=== PATIENT | female | born 1940 | race Caucasian/White ===

== ENCOUNTER 2020-11-10 09:53 | Emergency (ER) | payer MEDICARE, SELFPAY ==
[2020-11-10] VITALS (15 sets, daily range): BP systolic 64–129; BP diastolic 48–78; PULSE 52–95; RESP 9–18; TEMP 36.2–36.6; O2SAT 94–98
--- NOTE | ~2020-11-10 | XR_ITS ---
XR wrist RT min 3V DATE: 11/10/2020 10:36 INDICATION: Medial right wrist pain following fall TECHNIQUE: 4 views COMPARISON: None FINDINGS: There is a subtle nondisplaced linear intra-articular fracture of the distal lateral radius . The distal ulna is intact. Radiocarpal alignment is preserved. 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 IMPRESSION: Nondisplaced linear intra-articular fracture of the distal radius Reviewed, dictated and finalized at location A.
--- NOTE | ~2020-11-10 | XR_ITS ---
XR hip RT min 3V w AP pelvis DATE: 11/10/2020 10:35 INDICATION: Fall. Right hip pain. TECHNIQUE: AP pelvis. AP, lateral and crosstable lateral views of left hip COMPARISON: None FINDINGS: No pelvic fracture or bone destruction. The pubic symphysis and sacroiliac joints are adry lly aligned. No fracture or dislocation, avascular necrosis or bone destruction of the right hip. Hip joint spaces appear symmetric and relatively preserved. IMPRESSION: No pelvic or right hip fracture Reviewed, dictated and finalized at location A.
--- NOTE | 2020-11-10 10:25 | ED.FALL ---
HPI - Fall General Chief Complaint: Fall <Maryellen Chandra PA-C - Last Filed: 11/10/20 15:09> Stated Complaint: FALL/ R HIP R WRIST PAIN <EBONI Astorga Last Filed: 11/10/20 15:09> Time Seen by Provider: 11/10/20 10:11 <EBONI Astorga Last Filed: 11/10/20 15:09> Source: patient <EBONI Astorga Last Filed: 11/10/20 15:09> Mode of arrival: EMS <EBONI Astorga Last Filed: 11/10/20 15:09> Limitations: no limitations <EBONI Astorga Last Filed: 11/10/20 15:09> History of Present Illness HPI Narrative: This is a 80-year-old female that presents to the emergency department after a fall today via EMS. Reports she was walking into a room and could not find the light switch. Reports she did not realize there was a step and missed the step. This caused her to fall onto her right side. Since she has had right wrist and hip pain. The pain in her hip makes her unable to ambulate. Reports decreased range of motion in the right hip due to pain. Denies hitting her head, loss of consciousness, vision changes, vomiting, numbness, or weakness. <Maryellen Chandra PA-C - Last Filed: 11/10/20 15:09> Related Data Home Medications: Home Medications Medication Instructions Recorded Confirmed estradiol 1 g VAGINAL 3XW 11/10/20 <EBONI Astorga Last Filed: 11/10/20 15:09> Allergies/Adverse Reactions: Allergies Allergy/AdvReac Type Severity Reaction Status Date / Time cat dander Allergy Hives Verified 11/10/20 09:59 nitrofurantoin Allergy Fever Verified 11/10/20 09:59 [From Macrobid] Sulfa (Sulfonamide Allergy Unknown Verified 11/10/20 09:59 Antibiotics) <EBONI Astorga Last Filed: 11/10/20 15:09> Review of Systems Review of Systems: CONSTITUTIONAL: Denies fever EYES: Denies visual changes GASTROINTESTINAL: Denies vomiting MUSCULOSKELETAL: Reports joint pain and myalgia. Denies back pain NEUROLOGIC: Denies headache, numbness, or weakness. <Maryellen Chandra PA-C - Last Filed: 11/10/20 15:09> All systems reviewed & are unremarkable except as noted in HPI and below <Maryellen Chandra PA-C - Last Filed: 11/10/20 15:09> [facility] Past Medical History Medical History: Medical History (Updated 11/10/20 @ 11:59 by Maryellen Chandra PA-C) History of osteopenia <Maryellen Chandra PA-C - Last Filed: 11/10/20 15:09> Social History Social History: Social History (Updated 11/10/20 @ 10:27 by Maryellen Chandra PA-C) Smoking status: Never smoker Gender identity (if verbalized by the patient): Female <Maryellen Chandra PA-C - Last Filed: 11/10/20 15:09> Exam Narrative: GENERAL: Well-appearing, well-nourished, and in no acute distress. HEAD: Normocephalic, atraumatic. EYES: PERRLA and EOMI. ENT: Nares clear, no rhinorrhea or epistaxis. Mucous membranes moist. Oropharynx without tonsillar hypertrophy exudate or other lesions. Bilateral TMs pearly bran non-bulging NECK: Supple. No adenopathy or masses. No midline cervical spine tenderness CHEST: Clear to auscultation. No respiratory distress. No wheezes rales or rhonchi HEART: Regular rate and rhythm. No murmur heard. Normal peripheral pulses. BACK: No midline thoracic or lumbar spine tenderness EXTREMITIES: Normal range of motion, except decreased range of motion in the right hip due to pain. No edema or obvious deformity. Normal peripheral pulses. Normal sensation SKIN: Warm, dry, no rash. NEURO: No focal deficits. Alert and oriented x3. Cranial nerves II through XII grossly intact PSYCH: Normal mood and affect <Maryellen Chandra PA-C - Last Filed: 11/10/20 15:09> Course Vital Signs Vital signs: Vital Signs Temperature 98 F 11/10/20 09:54 Pulse Rate 81 11/10/20 09:54 Respiratory Rate 18 11/10/20 09:54 Blood Pressure 129/67 11/10/20 09:54 Pulse Oximetry 96 11/10/20 09:54 Temperature 97.3 F L 11/10/20 14:31 Pulse R
[2020-11-10] MEDS: ONDANSETRON INJ 4 MG/2 ML VIAL IV PUSH (10:40)
[2020-11-10] MEDS: MORPHINE SULFATE (*CRX) 2 MG/ML INJ IV PUSH (10:43)
--- NOTE | 2020-11-10 11:49 | PC.NURSE ---
Patient was slow to ambulate and did have assistance x1 to maintain balance. Her family member in room was able to help. Patient tells me that she feels that she is able to go home and ambulate as needed to care for herself and use bathroom. Family member will be present with patient at home to assist as needed. ED PA notified.
[2020-11-10 12:01] LABS: Glucose Point of Care 92 mg/dl (65-105)
--- NOTE | 2020-11-10 12:01 | PC.NURSE ---
Patient sitting on the edge of the stretcher, she states she feels very lightheaded . She is noted to be very diaphoretic. Blood pressure noted to be 64/48 while sitting and glucose was checked as noted in labs. Patient was assisted back to lay in bed with repeat blood pressure noted at 83/59. ED PA notified of patient condition.
[2020-11-10] MEDS: SODIUM CHLORIDE 0.9% IV 1,000 ML 999 ML IV CONT (12:10)
--- NOTE | 2020-11-10 13:15 | PC.NURSE ---
EDPA notified of the patient's vitals after fluids. Patient became tachypnic and diaphoretic when moving from lying to sitting position and needed to be held up when doing the standing vitals.
[2020-11-10] MEDS: HYDROcodone/acetaminophen (*CRX) 5-325 MG TABLET 1 TAB PO (13:24)
[2020-11-10] MEDS: SODIUM CHLORIDE 0.9% IV 500 ML 999 ML IV CONT (13:24)
== END 2020-11-10 15:16 | disposition home or self-care (01) ==
PROVIDERS: Emergency Provider General Practice
DX: S52.571A Other intraarticular fracture of lower end of right radius, initial encounter for closed fracture (principal); M25.551 Pain in right hip; W10.9XXA Fall (on) (from) unspecified stairs and steps, initial encounter
CPT/HCPCS: 29125; 73110; 73502; 82948; 96361; 96374; 96375; 99284; A4565; A9270; J2270; J2405; J7030; J7040

== ENCOUNTER 2022-05-13 08:55 | Emergency (ER) | payer MEDICARE, SELFPAY ==
[2022-05-13] VITALS (12 sets, daily range): BP systolic 92–106; BP diastolic 66–86; PULSE 73–151; RESP 11–20; TEMP 36.4; O2SAT 95–99
--- NOTE | ~2022-05-13 | XR_ITS ---
EXAMINATION: XR chest 2V 05/13/2022 09:47 INDICATION: Chest palpitations PROCEDURE: 2 view chest COMPARISON: No prior studies for comparison. FINDINGS: The lungs are clear. The cardiomediastinal silhouette is within normal limits. There are no pleural effusions. There is no pneumothorax suspected. IMPRESSION: 1: NO ACUTE CARDIOPULMONARY DISEASE. Reviewed, dictated and finalized at location L. ER FINISHER
--- NOTE | 2022-05-13 09:06 | ECG_ITS ---
Measurements Intervals [place] Rate: 78 P: 64 [place]: 130 QRS: 2 QRSD: 93 T: 50 QT: 381 QTc: 435 Interpretive Statements SINUS RHYTHM INDETERMINATE AXIS LOW QRS VOLTAGE IN PRECORDIAL LEADS [QRS DEFLECTION < 1.0 mV IN CHEST LEADS] INCOMPLETE RIGHT BUNDLE BRANCH BLOCK [90+ ms QRS DURATION, TERMINAL R IN V1/V2, 40+ ms S IN I/aVL/V4/V5/V6] POSSIBLE iNFERIOR MYOCARDIAL INFARCTION , PROBABLY OLD [40+ ms Q WAVE AND/OR ST/T ABNORMALITY IN II/aVF] ABNORMAL ECG Electronically Signed On 05-13-2022 14:14:34 PLASTIC SHEETS FINISHING SUPERVISOR by Caleb Mcbride M.D.
[2022-05-13 09:32] LABS: Basophils Absolute Auto 0.1 K/mm3 (0.0-0.1); Basophils Percent Auto 0.9 % (0.2-1.2); Eosinophils Absolute Auto 0.1 K/mm3 (0-0.3); Eosinophils Percent Auto 1.7 % (0-4.4); Hematocrit 42.2 % (37.0-47.0); Hemoglobin 13.4 g/dL (12.0-15.0); Immature Granulocyte Absolute 0.01 K/mm3 (0.00-0.031); Immature Granulocyte Percent A 0.2 % (0-0.5); Lymphocytes Absolute Auto 1.18 K/mm3 (0.9-3.2); Lymphocytes Percent Auto 20.5 % (18.3-44.2); Mean Corpuscular HGB Conc 31.8 g/dl (32-36); Mean Corpuscular Hemoglobin 31.2 pg (26-34); Mean Corpuscular Volume 98.4 fl (80-100); Mean Platelet Volume 10.6 fl (7.4-10.4); Monocytes Absolute Auto 0.4 K/mm3 (0.1-0.6); Monocytes Percent Auto 7.3 % (2.6-8.5); Neutrophils Percent Auto 69.4 % (45.5-73.1); Platelet Count Result 235 k/mm3 (150-375); Red Blood Count 4.29 M/mm3 (4.2-5.4); Red Cell Distribution Width 12.5 % (11.5-14.5); White Blood Count 5.8 K/mm3 (4.5-10.0)
--- NOTE | 2022-05-13 09:33 | ED.ARRPALP ---
HPI - Arrhythmia/Palpitations General Chief Complaint: Arrhythmia/Palpitations Stated Complaint: elevated heart rate, A-fib Time Seen by Provider: 05/13/22 09:14 History of Present Illness HPI narrative: Patient is a 81-year-old female who presents ER with palpitations. Patient reports she woke up and then became dizzy and has been off balance. No tightness in her chest but has racing the heart. She checked her Apple Watch and her heart rate was in the 140s. She reports that she has history of mitral valve prolapse in her ground mixer Dr. Brewer recently told her that that is associated with atrial fibrillation. Patient has no previous history of A-fib. She is not anticoagulated. No loss of consciousness. No difficulty breathing. Related Data Home Medications Medication Instructions Recorded Confirmed estradiol 0.01% (0.1 mg/gram) 1 g vaginal 3XW 11/10/20 01/30/21 vaginal cream ascorbic acid (vitamin C) 1,000 mg 1 g PO DAILY 11/14/20 01/30/21 tablet cholecalciferol (vitamin D3) 50 50 mcg PO DAILY 11/14/20 01/30/21 mcg (2,000 unit) capsule cranberry extract 200 mg capsule 200 mg PO DAILY 11/14/20 01/30/21 (Ellura) estradiol 0.01% (0.1 mg/gram) 1 g vaginal 3XW 11/14/20 01/30/21 vaginal cream melatonin 5 mg tablet 5 mg PO QHS 11/14/20 01/30/21 jnlgsogi-prg-C. coag-B. tablet PO .PRN 11/14/20 01/30/21 subtilis-inulin 1 billion cell-1 gram chew tab (Culturelle Probiotic-Multivit) multivitamin 1 tablet PO DAILY 11/14/20 01/30/21 naphazoline 0.025 %-pheniramine 1 drp EACH EYE QID PRN 11/14/20 01/30/21 0.3 % eye drops (Naphcon-A) Allergies Allergy/AdvReac Type Severity Reaction Status Date / Time cat dander Allergy Hives Verified 05/13/22 09:06 nitrofurantoin Allergy Fever Verified 05/13/22 09:06 [From Macrobid] Sulfa (Sulfonamide Allergy Unknown Verified 05/13/22 09:06 Antibiotics) Review of Systems Review of Systems: All systems reviewed & are unremarkable except as noted in HPI and below Constitutional: Constitutional: Denies chills, Denies fatigue and Denies fever(s) Cardiovascular: Cardiovascular: Denies chest pain, Reports rapid heart rate and Denies radiating jaw, neck or arm pain Respiratory: Respiratory: Denies cough, Denies dyspnea and Denies wheezing Neurologic: Reports dizziness, Denies headache(s), Denies focal weakness and Denies numbness PMFSH Past Medical History Medical History Broken arm 05/11/2013, 11/10/2020 Contusion of right hip and thigh Contusion of right hip, initial encounter History of osteopenia History of polymyalgia rheumatica [id number] Surgical History Surgical History History of breast surgery 1965 in [place], [place] to remove benign tumor History of colonoscopy 1994 and 1997 in [facility], 2002 in [facility], 2007 in [facility], 2018 in [facility] History of colonoscopy with polypectomy 1992 in [facility] and 2012 in [facility] in [facility] History of eye surgery 1960 at [facility] to correct amblyopia History of hysterectomy 1992 in [facility] Social History Social History Alcohol intake: current Drinks per week: 3 Occupation/Education: retired Gender identity (if verbalized by the patient): Female Exam Narrative: GENERAL: Well-appearing, well-nourished, and in no acute distress. HEAD: Normocephalic, atraumatic. EYES: PERRL and EOMI. ENT: Mucous membranes moist. CHEST: Clear to auscultation. No respiratory distress. HEART: Irregularly irregular rate and rhythm that is tachycardic. Normal peripheral pulses. EXTREMITIES: Normal range of motion. No edema. SKIN: Warm, dry, no rash. NEURO: Alert and oriented x3. PSYCH: Normal mood and affect. C
[2022-05-13 09:41] LABS: Alanine Aminotransferase 25 U/L (6-35); Albumin Level 4.4 g/dL (3.5-5.1); Alkaline Phosphatase 63 U/L (38-126); Anion Gap 5 mmol/L (8-16); Aspartate Amino Transferase 27 U/L (14-36); Bilirubin,Total 0.9 mg/dL (0.2-1.3); Blood Urea Nitrogen 24 mg/dL (7-17); Carbon Dioxide 32 mmol/L (22-30); Chloride 105 mmol/L (98-107); Estimated CRCL calculation 46 ml/min; Estimated Glomerular Filt Rate > 60; Glucose 107 mg/dL (65-110); INR 1.1; Lipase 167 U/L (23-300); Potassium 3.7 mmol/L (3.4-5.0); Prothrombin Time 13.4 Seconds (11.1-14.7); Sodium 142 mmol/L (137-145)
--- NOTE | 2022-05-13 09:49 | PC.NURSE ---
upon returning from xray sr with pacs noted
[2022-05-13 09:50] LABS: Influenza A QL RT-PCR Negative (Negative); Influenza B QL RT-PCR Negative (Negative); SARS-CoV-2 RNA PCR Negative
[2022-05-13 09:53] LABS: Troponin I 0.014 ng/mL (0.000-0.034)
--- NOTE | 2022-05-13 09:58 | ECG_ITS ---
Measurements Intervals [place] Rate: 141 P: [place]: 0 QRS: -16 QRSD: 93 T: 33 QT: 302 QTc: 463 Interpretive Statements ATRIAL FIBRILLATION WITH RAPID VENTRICULAR RESPONSE INDETERMINATE AXIS INCOMPLETE RIGHT BUNDLE BRANCH BLOCK [90+ ms QRS DURATION, TERMINAL R IN V1/V2, 40+ ms S IN I/aVL/V4/V5/V6] MINIMAL ST DEPRESSION [0.025+ mV ST DEPRESSION] LOW VOLTAGE ABNORMAL ECG NO PREVIOUS ECG AVAILABLE FOR COMPARISON Electronically Signed On 05-13-2022 14:13:20 AGRICULTURE ENGINEER by Caleb Mcbride M.D.
[2022-05-13] MEDS: APIXABAN 5 MG TABLET PO (11:53)
== END 2022-05-13 12:00 | disposition home or self-care (01) ==
PROVIDERS: Emergency Provider Emergency Medicine; Referring Provider Internal Medicine Cardiovascular Disease
DX: I48.91 Unspecified atrial fibrillation (principal); M85.80 Other specified disorders of bone density and structure, unspecified site; Z90.710 Acquired absence of both cervix and uterus; Z20.822 Contact with and (suspected) exposure to COVID-19; I45.10 Unspecified right bundle-branch block; R94.31 Abnormal electrocardiogram [ECG] [EKG]
CPT/HCPCS: 36415; 71046; 80053; 83690; 84484; 85025; 85610; 85730; 87636; 93005; 99284; A9270

== ENCOUNTER 2022-06-08 08:43 | Emergency (ER) | payer MEDICARE, SELFPAY ==
[2022-06-08] VITALS (31 sets, daily range): BP systolic 90–119; BP diastolic 68–86; PULSE 62–156; RESP 10–22; TEMP 36.6; O2SAT 92–100
--- NOTE | ~2022-06-08 | XR_ITS ---
EXAMINATION: XR chest 2V 06/08/2022 09:46 INDICATION: Chest palpitations PROCEDURE: 2 view chest COMPARISON: 05/13/2022 FINDINGS: The lungs are clear. The cardiomediastinal silhouette is within normal limits. There are no pleural effusions. There is no pneumothorax suspected. IMPRESSION: 1: NO ACUTE CARDIOPULMONARY DISEASE. Reviewed, dictated and finalized at location A.
--- NOTE | 2022-06-08 08:53 | ECG_ITS ---
Measurements Intervals [place] Rate: 153 P: [place]: 0 QRS: -1 QRSD: 96 T: 61 QT: 293 QTc: 468 Interpretive Statements ATRIAL FIBRILLATION WITH RAPID VENTRICULAR RESPONSE LOW QRS VOLTAGE IN PRECORDIAL LEADS INCOMPLETE RIGHT BUNDLE BRANCH BLOCK BORDERLINE ST ABNORMALITY- ANTEROLATERAL LEADS ABNORMAL ECG COMPARED TO ECG 05/13/2022 10:02:02 ATRIAL FIBRILLATION NOW PRESENT ST DEVIATION NOW PRESENT Electronically Signed On 06-08-2022 17:11:34 CDT by Aston Barton D.O.
[2022-06-08] MEDS: dilTIAZem HCl INJ 25 MG/5 ML VIAL 15 MG IV PUSH (09:04)
[2022-06-08] MEDS: dilTIAZem 100 MG/100 ML 100 MG/100 ML BAG IV CONT (09:05)
--- NOTE | 2022-06-08 09:20 | ED.ARRPALP ---
HPI - Arrhythmia/Palpitations General Chief Complaint: Arrhythmia/Palpitations Stated Complaint: in afib Time Seen by Provider: 06/08/22 09:10 History of Present Illness HPI narrative: 81-year-old female with a history of atrial fibrillation, MVP and mitral regurgitation reports for palpitations with associated lightheadedness that she woke up this morning. Patient states she woke up feeling her heart racing and knew she was in A-fib with RVR, then came to the ED. Pt sees Dr. Brewer (cardiology). Last apt was 05/29/22. She takes eliquis 5mg daily, however did not take it for 5 days between 06/01-06/06 because she was getting a colonoscopy. She took her dose yesterday, but has not taken her dose yet this morning. She is not on rate control medications due to history of low blood pressure. Denies headache, vision changes, focal numbness or weakness, CP, SOB, n/v/d. Denies history of CHF, [place]. Related Data Home Medications Medication Instructions Recorded Confirmed estradiol 0.01% (0.1 mg/gram) 1 g vaginal 3XW 11/10/20 01/30/21 vaginal cream ascorbic acid (vitamin C) 1,000 mg 1 g PO DAILY 11/14/20 01/30/21 tablet cholecalciferol (vitamin D3) 50 50 mcg PO DAILY 11/14/20 01/30/21 mcg (2,000 unit) capsule cranberry extract 200 mg capsule 200 mg PO DAILY 11/14/20 01/30/21 (Ellura) estradiol 0.01% (0.1 mg/gram) 1 g vaginal 3XW 11/14/20 01/30/21 vaginal cream melatonin 5 mg tablet 5 mg PO QHS 11/14/20 01/30/21 [id number]-hxk-V. coag-B. tablet PO .PRN 11/14/20 01/30/21 subtilis-inulin 1 billion cell-1 gram chew tab (Culturelle Probiotic-Multivit) multivitamin 1 tablet PO DAILY 11/14/20 01/30/21 naphazoline 0.025 %-pheniramine 1 drp EACH EYE QID PRN 11/14/20 01/30/21 0.3 % eye drops (Naphcon-A) Allergies Allergy/AdvReac Type Severity Reaction Status Date / Time cat dander Allergy Hives Verified 05/13/22 09:06 nitrofurantoin Allergy Fever Verified 05/13/22 09:06 [From Macrobid] Sulfa (Sulfonamide Allergy Unknown Verified 05/13/22 09:06 Antibiotics) Review of Systems Review of Systems: CONSTITUTIONAL: Denies fever, chills EYES: Denies visual changes, redness, or discharge. ENT: Denies rhinorrhea, congestion, sore throat, or otalgia. CARDIOVASCULAR: Denies chest pain, or edema. RESPIRATORY: Denies cough or dyspnea. GASTROINTESTINAL: Denies abdominal pain, nausea, vomiting, or diarrhea. GENITOURINARY: Denies dysuria or hematuria. SKIN: Denies rash or itching. MUSCULOSKELETAL: Denies back pain, joint pain, or myalgia. NEUROLOGIC: Denies headache, numbness, dizziness, or weakness. PSYCHIATRIC: Denies anxiety or depression. PMFSH Past Medical History Medical History Broken arm 05/11/2013, 11/10/2020 Contusion of right hip and thigh Contusion of right hip, initial encounter History of osteopenia History of polymyalgia rheumatica [id number] Surgical History Surgical History History of breast surgery 1965 in [place], [place] to remove benign tumor History of colonoscopy 1994 and 1997 in [facility], 2002 in [facility], 2007 in [facility], 2018 in [facility] History of colonoscopy with polypectomy 1992 in [facility] and 2012 in [facility] History of eye surgery 1959 at [facility] to correct amblyopia History of hysterectomy 1992 in [facility] Social History Social History Alcohol intake: current Drinks per week: 3 Occupation/Education: retired Gender identity (if verbalized by the patient): Female Exam Narrative: GENERAL: Well-appearing, well-nourished, and in no acute distress. Patient resting comfortably in the bed. She is pleasant and conversational. Speaking in full sentences. HEAD: Normocep
[2022-06-08 09:33] LABS: Basophils Absolute Auto 0.1 K/mm3 (0.0-0.1); Basophils Percent Auto 1.3 % (0.2-1.2); Eosinophils Absolute Auto 0.1 K/mm3 (0-0.3); Eosinophils Percent Auto 2.1 % (0-4.4); Hematocrit 43.4 % (37.0-47.0); Immature Granulocyte Absolute 0.01 K/mm3 (0.00-0.031); Immature Granulocyte Percent A 0.2 % (0-0.5); Lymphocytes Absolute Auto 1.69 K/mm3 (0.9-3.2); Lymphocytes Percent Auto 32.3 % (18.3-44.2); Mean Corpuscular HGB Conc 32.3 g/dl (32-36); Mean Corpuscular Hemoglobin 31.1 pg (26-34); Mean Corpuscular Volume 96.4 fl (80-100); Mean Platelet Volume 11.3 fl (7.4-10.4); Monocytes Absolute Auto 0.4 K/mm3 (0.1-0.6); Monocytes Percent Auto 8.2 % (2.6-8.5); Neutrophils Absolute Auto 2.9 K/mm3 (1.3-6.7); Neutrophils Percent Auto 55.9 % (45.5-73.1); Platelet Count Result 237 k/mm3 (150-375); Red Cell Distribution Width 12.5 % (11.5-14.5); White Blood Count 5.2 K/mm3 (4.5-10.0)
--- NOTE | 2022-06-08 09:49 | PC.NURSE ---
Patient off unit to radiology.
[2022-06-08] MEDS: ENOXAPARIN 60 MG/0.6 ML SYRINGE SUB-Q (10:16)
--- NOTE | 2022-06-08 10:28 | ECG_ITS ---
Measurements Intervals [place] Rate: 64 P: 64 CT: 142 QRS: 45 QRSD: 101 T: 61 QT: 410 QTc: 426 Interpretive Statements SINUS RHYTHM LOW QRS VOLTAGE IN PRECORDIAL LEADS INCOMPLETE RIGHT BUNDLE BRANCH BLOCK BORDERLINE R WAVE PROGRESSION, ANTERIOR LEADS BORDERLINE ECG COMPARED TO ECG 06/08/2022 08:53:08 SINUS RHYTHM NOW PRESENT Electronically Signed On 06-08-2022 17:15:45 CDT by Aston Barton D.O.
[2022-06-08 10:31] LABS: INR 1.3; Partial Thromboplastin Time 31.7 SECONDS (22.3-36.8); Prothrombin Time 15.2 Seconds (11.1-14.7)
[2022-06-08 10:35] LABS: Alanine Aminotransferase 30 U/L (6-35); Albumin Level 3.9 g/dL (3.5-5.1); Alkaline Phosphatase 55 U/L (38-126); Anion Gap 3 mmol/L (8-16); Aspartate Amino Transferase 30 U/L (14-36); Bilirubin,Total 1.1 mg/dL (0.2-1.3); Blood Urea Nitrogen 21 mg/dL (7-17); Calcium 8.5 mg/dL (8.4-10.2); Carbon Dioxide 30 mmol/L (22-30); Chloride 108 mmol/L (98-107); Estimated CRCL calculation 53 ml/min; Estimated Glomerular Filt Rate > 60; Glucose 92 mg/dL (65-110); Lipase 151 U/L (23-300); Potassium 4.4 mmol/L (3.4-5.0); Sodium 141 mmol/L (137-145)
[2022-06-08 10:46] LABS: Troponin I < 0.012 ng/mL (0.000-0.034)
--- NOTE | 2022-06-08 11:15 | PC.NURSE ---
Patient report given to JAYE Hawkins. All questions answered and care of patient transferred.
[2022-06-08] MEDS: METOPROLOL TARTRATE 25 MG TABLET 12.5 MG PO (11:53)
--- NOTE | 2022-06-08 12:00 | PC.NURSE ---
Clarified wit SHANTEL Martini, no need for three hours troponin prior to discharge.
== END 2022-06-08 12:19 | disposition home or self-care (01) ==
PROVIDERS: Emergency Medicine; Emergency Provider Physician Assistant; PCP Internal Medicine Cardiovascular Disease
DX: I48.20 Chronic atrial fibrillation, unspecified (principal)
CPT/HCPCS: 36415; 71046; 80053; 83690; 84484; 85025; 85610; 85730; 93005; 96365; 96372; 96376; 99284; A9270; J1650

== ENCOUNTER 2022-10-28 18:15 | Emergency (ER) | payer MEDICARE, SELFPAY ==
[2022-10-28] VITALS (12 sets, daily range): BP systolic 146–149; BP diastolic 75–82; PULSE 63–77; RESP 12–18; TEMP 36.3–36.5; O2SAT 95–100
--- NOTE | ~2022-10-28 | XR_ITS ---
EXAM: XR forearm LT 2V DATE: 10/28/2022 19:39 HISTORY: fall . COMPARISON: None available. FINDINGS: Decreased mineralization. No fracture or dislocation. No lytic or blastic lesion. Joint sp aces are maintained. No erosion or periosteal change. Soft tissues within normal limits. IMPRESSION: No acute osseous finding in the left forearm. If clinical symptoms or mechanism of injury suggest wrist or elbow injury, consider dedicated radiographs of those specific joints.. Reviewed, dictated and finalized at location K. IMPRESSION: No acute osseous finding in the left forearm. If clinical symptoms or mechanism of injury suggest wrist or elbow injury, consider dedicated radiog raphs of those specific joints..
--- NOTE | ~2022-10-28 | CT_ITS ---
EXAMINATION: CT brain wo con DATE: 10/28/2022 20:04 INDICATION: fall . TECHNIQUE: Computed tomography (CT) of the head was performed without intravenous contrast. The mA wa s adjusted according to patient size. Iterative reconstruction technique was employed. The dose-lengt h product was 681.00 mGy-cm. COMPARISON: None. FINDINGS: 4.2 x 1.8 cm mixed density hemorrhage along the right tentorium, maximum thickness 11 mm, may reflect clot mixing with anemic blood, CSF, or variably aged blood. Ill-defined, small volume subarachnoid h emorrhage in the interhemispheric fissure. No hydrocephalus, mass, or herniation. No acute ischemic infarct. Unremarkable dural venous sinus attenuation. No acute osseous abnormality. The aerated spaces are clear. Posterior scalp laceration/contusion. Moderate atrophy and chronic white matter change. Atherosclerotic intracranial calcification. IMPRESSION: 4.2 x 1.8 cm area of mixed density subdural hemorrhage along the right tentorium, maximum thickness u p to 11 mm. Small volume subarachnoid hemorrhage in the interhemispheric fissure. Results reported telephonically to Dr. Anderson by Dr. Herring at 8:13 PM on 10/28/2022. Reviewed, dictated and finalized at location K. IMPRESSION: 4.2 x 1.8 cm area of mixed density subdural hemorrhage along the right tentoriu m, maximum thickness up to 11 mm. Small volume subarachnoid hemorrhage in the interhemispheric fissure. Results reported telephonically to Dr. Anderson by Dr. Herring at 8:13 PM on 10/29/19 23.
--- NOTE | ~2022-10-28 | XR_ITS ---
EXAM: XR hip LT 2V w AP pelvis DATE: 10/28/2022 19:39 HISTORY: fall . COMPARISON: 11/10/2020 2 half to include the. FINDINGS: Decreased mineralization. Chronic appearing right obturator ring/pubic bone fractures. No new acute fracture or dislocation. No lytic or blastic lesion. Lumbar degenerative disc disease. Dege nerative changes in the bilateral hips, SI joints, and pubic symphysis. No erosion or periosteal karimi ge. Vaginal pessary. IMPRESSION: No acute osseous finding in the pelvis or left hip. Reviewed, dictated and finalized at location [facility].
--- NOTE | ~2022-10-28 | CT_ITS ---
EXAMINATION: CT cervical spine wo con DATE: 10/28/2022 20:05 INDICATION: fall TECHNIQUE: Computed tomography (CT) of the cervical spine was performed without intravenous contrast. Automated exposure control and iterative reconstruction technique were employed. The dose-length pro duct was 222.17 mGy-cm. COMPARISON: None. FINDINGS: Vertebral Body Alignment: Intact. Craniocervical and atlantoaxial alignment: Moderate degenerative change. Alignment intact. Osseous structures/fracture: No evidence of a lytic or blastic process in the visualized spine. No e vidence of acute fracture. Cervical soft tissues: The paraspinal soft tissues planes are maintained. Degenerative changes: Degenerative changes, without severe neural foraminal or central canal narrowin g. IMPRESSION: No acute fracture or traumatic malalignment in the cervical spine. Reviewed, dictated and finalized at location [facility].
--- NOTE | 2022-10-28 19:09 | ECG_ITS ---
Measurements Intervals [place] Rate: 71 P: 73 NM: 140 QRS: -15 QRSD: 100 T: 33 QT: 426 QTc: 463 Interpretive Statements SINUS RHYTHM WITH OCCASIONAL VENTRICULAR PREMATURE COMPLEXES INCOMPLETE RIGHT BUNDLE BRANCH BLOCK [90+ ms QRS DURATION, TERMINAL R IN V1/V2, 40+ ms S IN I/aVL/V4/V5/V6] POSSIBLE INFERIOR MYOCARDIAL INFARCTION , PROBABLY OLD [30 ms Q WAVE IN II/aVF] ABNORMAL ECG COMPARED TO ECG 06/08/2022 10:55:56 NO SIGNIFICANT CHANGES Electronically Signed On 10-29-2022 9:18:54 CDT by Caleb Mcbride M.D.
[2022-10-28 19:37] LABS: Anion Gap 10 mmol/L (8-16); Blood Urea Nitrogen 22 mg/dL (7-17); Carbon Dioxide 24 mmol/L (22-30); Chloride 103 mmol/L (98-107); Estimated CRCL calculation 61 ml/min; Estimated Glomerular Filt Rate > 60; Glucose 112 mg/dL (65-110); Potassium 3.6 mmol/L (3.4-5.0); Sodium 137 mmol/L (137-145)
[2022-10-28 19:38] LABS: Basophils Absolute Auto 0.1 K/mm3 (0.0-0.1); Basophils Percent Auto 0.7 % (0.2-1.2); Eosinophils Absolute Auto 0.2 K/mm3 (0-0.3); Eosinophils Percent Auto 1.8 % (0-4.4); Hematocrit 39.4 % (37.0-47.0); Hemoglobin 12.9 g/dL (12.0-15.0); Immature Granulocyte Absolute 0.06 K/mm3 (0.00-0.031); Immature Granulocyte Percent A 0.7 % (0-0.5); Lymphocytes Percent Auto 31.3 % (18.3-44.2); Mean Corpuscular HGB Conc 32.7 g/dl (32-36); Mean Corpuscular Hemoglobin 31.3 pg (26-34); Mean Corpuscular Volume 95.6 fl (80-100); Mean Platelet Volume 11.1 fl (7.4-10.4); Monocytes Absolute Auto 0.7 K/mm3 (0.1-0.6); Monocytes Percent Auto 7.6 % (2.6-8.5); Neutrophils Absolute Auto 5.2 K/mm3 (1.3-6.7); Neutrophils Percent Auto 57.9 % (45.5-73.1); Platelet Count Result 223 k/mm3 (150-375); Red Blood Count 4.12 M/mm3 (4.2-5.4); Red Cell Distribution Width 12.3 % (11.5-14.5)
[2022-10-28] MEDS: ONDANSETRON HCL ODT 4 MG TABLET PO (19:38)
--- NOTE | 2022-10-28 20:16 | ED.HEATRA ---
HPI - Head Injury General Chief complaint: Head Injury Stated complaint: fell down stairs, on eliquis Time Seen by Provider: 10/28/22 19:01 History of Present Illness HPI Narrative: patient cannot recall exactly what happened but her found her at the bottom of the stairs, she had been quite nauseous and almost threw up once or twice, no focal numbness or tingling or weakness anywhere, she has no pain anywhere else other than some to her left wrist. She is on Eliquis. Per , she did not recall anything that happened earlier in the day but her memory has started coming back. Related Data Home Medications Medication Instructions Recorded Confirmed estradiol 0.01% (0.1 mg/gram) 1 g vaginal 3XW 11/10/20 01/30/21 vaginal cream ascorbic acid (vitamin C) 1,000 mg 1 g PO DAILY 11/14/20 01/30/21 tablet cholecalciferol (vitamin D3) 50 50 mcg PO DAILY 11/14/20 01/30/21 mcg (2,000 unit) capsule cranberry extract 200 mg capsule 200 mg PO DAILY 11/14/20 01/30/21 (Ellura) estradiol 0.01% (0.1 mg/gram) 1 g vaginal 3XW 11/14/20 01/30/21 vaginal cream melatonin 5 mg tablet 5 mg PO QHS 11/14/20 01/30/21 qwamkgem-cgi-U. coag-B. tablet PO .PRN 11/14/20 01/30/21 subtilis-inulin 1 billion cell-1 gram chew tab (Culturelle Probiotic-Multivit) multivitamin 1 tablet PO DAILY 11/14/20 01/30/21 naphazoline 0.025 %-pheniramine 1 drp EACH EYE QID PRN 11/14/20 01/30/21 0.3 % eye drops (Naphcon-A) Allergies Allergy/AdvReac Type Severity Reaction Status Date / Time cat dander Allergy Hives Verified 10/28/22 18:35 nitrofurantoin Allergy Fever Verified 10/28/22 18:35 [From Macrobid] Sulfa (Sulfonamide Allergy Unknown Verified 10/28/22 18:35 Antibiotics) Review of Systems Review of Systems: CONST: No fever. HEENT: Head injury C/V: No chest pain RESP: No cough GI: Nausea and vomiting : No dysuria. M/S: No joint pain. SKIN: Cut to head NEURO: No focal numbness or weakness PSYCH: [No depression] [facility] Past Medical History Medical History Broken arm 05/11/2013, 11/10/2020 Contusion of right hip and thigh Contusion of right hip, initial encounter History of osteopenia History of polymyalgia rheumatica [id number] Surgical History Surgical History History of breast surgery 1965 in [place], [place] to remove benign tumor History of colonoscopy 1994 and 1997 in [facility], 2002 in [facility], 2007 in [facility], 2018 in [facility] History of colonoscopy with polypectomy 1992 in [facility] and 2012 in [facility] in [facility] History of eye surgery 1959 at [facility] to correct amblyopia History of hysterectomy 1992 in [facility] Social History Social History Alcohol intake: current Drinks per week: 3 Occupation/Education: retired Gender identity (if verbalized by the patient): Female Exam Narrative: EXAMINATION OF ORGAN SYSTEMS/BODY AREAS: Constitutional: Vital signs per nursing GENERAL: Appears uncomfortable in bed, retching HEAD: Normal with no signs of head trauma. EYES: EOMI, conjunctiva normal ENT: Hearing grossly intact LUNGS: Nonlabored breathing. HEART: [Regular rate and rhythm] ABD: [Soft], [nontender to palpation] EXT: Normal range of motion SKIN: Laceration to back of head NEURO: [Alert and oriented x 3. No gross focal sensory or strength deficits.] PSYCH: Normal affect Course Vital Signs Vital signs: Vital Signs Temperature 97.3 F L 10/28/22 18:16 Pulse Rate 77 10/28/22 18:16 Respiratory Rate 16 10/28/22 18:16 Blood Pressure 146/82 H 10/28/22 18:16 Pulse Oximetry 100 10/28/22 18:16 Oxygen Delivery Room Air 10/28/22 18:16 Temperature 9
[2022-10-28] MEDS: HUMAN PROTHROMBIN COMPLEX(PCC) 3,000 UNITS in PREMIXIV 0 ML 447 UNITS IV CONT (20:48)
[2022-10-28] MEDS: TETANUS,DIPHTHERIA,AC PERTUSSIS ADULT (0.5 ML) BOOSTRIX IM (20:49)
--- NOTE | 2022-10-28 21:00 | PC.NURSE ---
CALLED [facility]SF[facility] @2019: UNABLE TO ACCEPT CALLED [facility]SF[facility] @2037: ER TO ER TRANSFER EMS: CALLED [facility] @ 2048 ACCEPTED- ETA CALLED [facility] @ 2053 DECLINED- NO TRANSFER TRUCKS AVAILABLE TONIGHT SPOKE TO DR. JERONIMO @ 2057. CHANGED TO [facility]. CALLED [facility] BACK @ 2100. ACCEPTED CHANGE: ETA 2124
[2022-10-28] MEDS: levETIRAcetam 500MG/NACL 100ML 500 MG/100 ML BAG 400 MG IVPB (21:09)
--- NOTE | 2022-10-28 21:15 | PC.NURSE ---
pt informed of current condition and need for transfer to [facility] by ED provider. Dr. Anderson.
[2022-10-28] MEDS: METOCLOPRAMIDE HCL INJ 10 MG/2 ML VIAL IV PUSH (21:48)
== END 2022-10-28 22:03 | disposition short-term general hospital (02) ==
PROVIDERS: Emergency Provider Emergency Medicine
DX: S06.6XAA Traumatic subarachnoid hemorrhage with loss of consciousness status unknown, initial encounter (principal); S06.5XAA Traumatic subdural hemorrhage with loss of consciousness status unknown, initial encounter; S01.01XA Laceration without foreign body of scalp, initial encounter; Z23 Encounter for immunization; M85.80 Other specified disorders of bone density and structure, unspecified site; Z90.710 Acquired absence of both cervix and uterus; I49.3 Ventricular premature depolarization; I45.10 Unspecified right bundle-branch block; R94.31 Abnormal electrocardiogram [ECG] [EKG]; W10.9XXA Fall (on) (from) unspecified stairs and steps, initial encounter
CPT/HCPCS: 12002; 36415; 70450; 72125; 73090; 73502; 80048; 85025; 90471; 90715; 93005; 96365; 96367; 96375; 99291; A9270; J1953; J2765; J7168; L0140

== ENCOUNTER 2023-03-29 09:28 | Emergency (ER) | payer MEDICARE, SELFPAY ==
--- NOTE | ~2023-03-29 | CT_ITS ---
EXAMINATION: CT cervical spine wo con DATE: 03/29/2023 10:28 INDICATION: Head injury from fall. Patient on blood thinners. TECHNIQUE: Computed tomography (CT) of the cervical spine was performed without intravenous contrast. Automated exposure control and iterative reconstruction technique were employed. Exam dose: 148.51 mGy-cm total exam DLP. COMPARISON: None FINDINGS: C1 and C2 are normally aligned and the odontoid process is intact. No fracture or dislocati on or locked facet or prevertebral soft tissue swelling. There is straightening of the cervical spine. Approximately 2.5 mm anterolisthesis at C4-5. No fractu re or dislocation or locked facet or prevertebral soft tissue swelling is detected. Moderately severe degenerative disease at C3-4. Mild degenerative disease at C4-5. Severe degenerative disease at C5-6 and C6-7. There is fusion of the left apophyseal joints from C2 to C5 and fusion of the right C3-4 apophyseal j oints. Uncovertebral joint spurring of the mid and lower cervical spine, most prominent at C5-6 and C6-7, es pecially on the right. IMPRESSION: Straightening of cervical spine which may be due to muscle spasm No fracture or dislocation or locked facet 2.5 mm anterolisthesis at C4-5 Prominent cervical spondylosis Reviewed, dictated and finalized at [facility]. Reviewed, dictated and finalized at location A. DDED HARDWARE ENGINEER
--- NOTE | ~2023-03-29 | CT_ITS ---
EXAMINATION: CT brain wo con DATE: 03/29/2023 10:28 INDICATION: Fall. Head injury. Patient on anticoagulant therapy TECHNIQUE: Computed tomography (CT) of the head was performed without intravenous contrast. The mA wa s adjusted according to patient size. Iterative reconstruction technique was employed. Exam dose: 60 5.33 mGy-cm total exam DLP. COMPARISON: 10/28/2022 CT brain FINDINGS: No intracranial mass lesion or hemorrhage or cerebrovascular accident, midline shift or mas s effect is detected. Bilateral carotid siphon internal carotid artery calcifications. No subdural or epidural hematoma. The orbital contents are unremarkable. The mastoid air cells and included paranasal sinuses are normally developed and aerated. No skull fracture or bone destruction. IMPRESSION: No skull fracture or acute intracranial finding Reviewed, dictated and finalized at [facility]. Reviewed, dictated and finalized at location A. DAMAGE ADJUSTER
[2023-03-29 09:59] VITALS: BP 112/71; PULSE 94; RESP 16; TEMP 36.7; O2SAT 99
[2023-03-29 10:00] VITALS: BP 112/71; PULSE 81; RESP 16; TEMP 36.6; O2SAT 100
--- NOTE | 2023-03-29 10:02 | ED.HEATRA ---
HPI - Head Injury General Chief complaint: Head Injury Stated complaint: head injury 4am-takes blood thinners Time Seen by Provider: 03/29/23 09:53 Source: patient Mode of arrival: ambulatory Limitations: no limitations History of Present Illness HPI Narrative: This is an 82-year-old female that presents to the emergency department after a fall today with head injury. Reports she has been having some urinary symptoms since Thursday. Reports urgency and frequency. She was getting up in the middle the night to use the restroom and lost her balance and fell. Reports hitting her head on the shower. She did not lose consciousness. She presented today for evaluation due to her being on Eliquis. Denies any other injuries or focal areas of pain. Denies visual changes, vomiting, flank pain, numbness, weakness. Related Data Home Medications Medication Instructions Recorded Confirmed estradiol 0.01% (0.1 mg/gram) 1 g vaginal 3XW 11/10/20 01/30/21 vaginal cream ascorbic acid (vitamin C) 1,000 mg 1 g PO DAILY 11/14/20 01/30/21 tablet cholecalciferol (vitamin D3) 50 50 mcg PO DAILY 11/14/20 01/30/21 mcg (2,000 unit) capsule cranberry extract 200 mg capsule 200 mg PO DAILY 11/14/20 01/30/21 (Ellura) estradiol 0.01% (0.1 mg/gram) 1 g vaginal 3XW 11/14/20 01/30/21 vaginal cream melatonin 5 mg tablet 5 mg PO QHS 11/14/20 01/30/21 [id number]-J. coag-B. tablet PO .PRN 11/14/20 01/30/21 subtilis-inulin 1 billion cell-1 gram chew tab (Culturelle Probiotic-Multivit) multivitamin 1 tablet PO DAILY 11/14/20 01/30/21 naphazoline 0.025 %-pheniramine 1 drp EACH EYE QID PRN 11/14/20 01/30/21 0.3 % eye drops (Naphcon-A) Allergies Allergy/AdvReac Type Severity Reaction Status Date / Time cat dander Allergy Hives Verified 03/29/23 09:29 nitrofurantoin Allergy Fever Verified 03/29/23 09:29 [From Macrobid] Sulfa (Sulfonamide Allergy Unknown Verified 03/29/23 09:29 Antibiotics) Review of Systems Review of Systems: CONSTITUTIONAL: Denies fever EYES: Denies visual changes GASTROINTESTINAL: Denies vomiting GENITOURINARY: Reports dysuria. Denies hematuria. MUSCULOSKELETAL: Denies back pain, joint pain, or myalgia. NEUROLOGIC: Denies headache, numbness, or weakness. All systems reviewed & are unremarkable except as noted in HPI and below PMFSH Past Medical History Medical History Broken arm 05/11/2013, 11/10/2020 Contusion of right hip and thigh Contusion of right hip, initial encounter History of osteopenia History of polymyalgia rheumatica [id number] Surgical History Surgical History History of breast surgery 1965 in [place], [place] to remove benign tumor History of colonoscopy 1994 and 1997 in [facility], 2002 in [facility], 2007 in [facility], 2018 in [facility] History of colonoscopy with polypectomy 1992 in [facility] and 2012 in [facility] History of eye surgery 1960 at [facility] to correct amblyopia History of hysterectomy 1992 in [facility] Social History Social History Alcohol intake: current Drinks per week: 3 Occupation/Education: retired Gender identity (if verbalized by the patient): Female Exam Narrative: GENERAL: Well-appearing, well-nourished, and in no acute distress. HEAD: Normocephalic, atraumatic. EYES: PERRLA and EOMI. ENT: Nares clear, no rhinorrhea or epistaxis. Mucous membranes moist. Oropharynx without tonsillar hypertrophy exudate or other lesions. Bilateral TMs pearly bran non-bulging NECK: Supple. No adenopathy or masses CHEST: Clear to auscultation. No respiratory distress. No wheezes rales or rhonchi HEART: Regular rate and rhythm. No murmur heard. Normal p
[2023-03-29 10:15] VITALS: BP 111/69; PULSE 78; RESP 18; O2SAT 100
[2023-03-29 10:41] LABS: Basophils Absolute Auto 0.1 K/mm3 (0.0-0.1); Basophils Percent Auto 0.6 % (0.2-1.2); Eosinophils Absolute Auto 0.1 K/mm3 (0-0.3); Eosinophils Percent Auto 0.7 % (0-4.4); Hematocrit 38.2 % (37.0-47.0); Hemoglobin 11.9 g/dL (12.0-15.0); Immature Granulocyte Absolute 0.03 K/mm3 (0.00-0.031); Immature Granulocyte Percent A 0.3 % (0-0.5); Lymphocytes Absolute Auto 0.98 K/mm3 (0.9-3.2); Lymphocytes Percent Auto 11.4 % (18.3-44.2); Mean Corpuscular HGB Conc 31.2 g/dl (32-36); Mean Corpuscular Hemoglobin 30.7 pg (26-34); Mean Corpuscular Volume 98.5 fl (80-100); Mean Platelet Volume 10.5 fl (7.4-10.4); Monocytes Absolute Auto 0.6 K/mm3 (0.1-0.6); Neutrophils Absolute Auto 6.9 K/mm3 (1.3-6.7); Platelet Count Result 212 k/mm3 (150-375); Red Blood Count 3.88 M/mm3 (4.2-5.4); Red Cell Distribution Width 12.3 % (11.5-14.5); White Blood Count 8.6 K/mm3 (4.5-10.0)
[2023-03-29 10:45] VITALS: BP 112/70; PULSE 79; RESP 19; TEMP 36.7; O2SAT 100
[2023-03-29 10:52] LABS: Anion Gap 5 mmol/L (8-16); Blood Urea Nitrogen 22 mg/dL (7-17); Calcium 9.1 mg/dL (8.4-10.2); Carbon Dioxide 31 mmol/L (22-30); Chloride 103 mmol/L (98-107); Estimated CRCL calculation 42 ml/min; Estimated Glomerular Filt Rate > 60; Glucose 70 mg/dL (65-110); Potassium 4.5 mmol/L (3.4-5.0); Sodium 139 mmol/L (137-145)
[2023-03-29 11:30] VITALS: BP 116/68; PULSE 76; RESP 16; TEMP 36.6; O2SAT 98
[2023-03-29 12:10] LABS: Appearance Urine Turbid (Clear); Bacteria Urine Rare /hpf; Bilirubin Urine 1+ (Negative); Blood Urine 2+ (Negative); Color Urine Dark Yellow (Yellow); Glucose Urine UA Negative (Negative); Ketones Urine Negative (Negative); Leukocyte Esterase Ur 3+ LEU/UL (Negative); Nitrate Urine Positive (Negative); Non Pathogenic Casts 0-2; Protein Urine Trace mg/dL (Negative); Specific Grav Ur 1.007 (1.001-1.035); Squamous Epithelial Cell Urine Occasional /hpf (Few); WBC Urine >100 /hpf
[2023-03-29 12:15] LABS: Add Urine Microscopic? YES
[2023-03-29 12:30] VITALS: BP 112/70; PULSE 78; RESP 16; TEMP 36.7; O2SAT 98
== END 2023-03-29 13:12 | disposition home or self-care (01) ==
PROVIDERS: Emergency Provider Physician Assistant
DX: N39.0 Urinary tract infection, site not specified (principal); S09.90XA Unspecified injury of head, initial encounter; W01.198A Fall on same level from slipping, tripping and stumbling with subsequent striking against other object, initial encounter; Z79.01 Long term (current) use of anticoagulants
CPT/HCPCS: 36415; 70450; 72125; 80048; 81001; 85025; 87077; 87086; 87186; 96365; 99284; J0696